=== PATIENT | male | born 1945 | race Caucasian/White ===

== ENCOUNTER 2018-04-06 15:36 | Emergency (ER) | payer OTHER ==
[~2018-04-06] VITALS: Ht 180.3 cm; Wt 86.9 kg
[~2018-04-06 15:36] MED LIST: ALLO300T PO; BENA1TAB11 PO; CLON0.1T PO; GLIP5TAB10 PO; INSU100C SQ-INSULIN; INSU100V8 SQ
[2018-04-06 16:45] VITALS: BP 91/55
== END 2018-04-06 17:16 | disposition home or self-care (01) ==
LOC: ED 16:34
DX: J18.1 Lobar pneumonia, unspecified organism (principal); I10 Essential (primary) hypertension; E11.9 Type 2 diabetes mellitus without complications
CPT/HCPCS: 71046; 99284

== ENCOUNTER → 2018-11-12 | Outpatient (CLI) | payer OTHER ==
[~2018-11-12] MED LIST changes: +ACET-1770 PO; +ACET1TAB64 PO; +BENA40TA3 PO; +CEFD300C37 PO; +CHOL200024 PO; +CINN1CAP PO; -CLON0.1T PO; +CLON0.1T22 PO; +CLOP75TA52 PO; +DIAZ10TA4 PO; +DICY10CA3 PO; +GABA300C10 PO; +GLIP10TA13 PO; +HYDR-3240 PO; +LEVO5TAB29 PO; +MULT-658 PO; +OMEP20TA62 PO; +PANT40TA5 PO
== END | disposition home or self-care (01) ==
LOC: STAR 13:07
PROVIDERS: ATTEND Surgery
DX: Z01.818 Encounter for other preprocedural examination (principal); K80.20 Calculus of gallbladder without cholecystitis without obstruction; I45.10 Unspecified right bundle-branch block
CPT/HCPCS: 93005

== ENCOUNTER 2018-11-18 06:52 | Day surgery (SDC) | payer OTHER ==
[~2018-11-18] VITALS: Ht 180.3 cm; Wt 85.0 kg
[2018-11-18] MEDS ORDERED: LACTATED RINGERS 1,000 ML IV SCH (07:23)
[2018-11-18 07:24] VITALS: BP 147/84
[2018-11-18] MEDS ORDERED: DIAZEPAM 5 MG TABLET PO ONE (08:00)
[2018-11-18] MEDS ORDERED: ACETAMINOPHEN 500 MG TABLET PO ONE (08:00)
[2018-11-18] MEDS ORDERED: GABAPENTIN 300 MG CAPSULE PO ONE (08:00)
[2018-11-18] MEDS ORDERED: FENTANYL PF 250 MCG/5ML ONE (08:11)
[2018-11-18] MEDS ORDERED: LIDOCAINE 2%, 6 ML JEL.PF.APP MM ONE (08:37)
[2018-11-18] MEDS ORDERED: BUPIVACAINE/EPI 0.5% 1:200K ONE (08:41)
[2018-11-18] MEDS ORDERED: EPHEDRINE 50 MG/ML, 1ML ONE (08:57)
[2018-11-18] MEDS ORDERED: PHENYLEPHRINE 10 MG/ML ONE (08:57)
[2018-11-18] MEDS ORDERED: PROPOFOL 10 MG/ML, 20ML ONE (09:57)
[2018-11-18] MEDS ORDERED: SUCCINYLCHOLINE 20 MG/ML, 10ML ONE (09:57)
[2018-11-18] MEDS ORDERED: NEOSTIGMINE 1 MG/ML, 10ML ONE (09:57)
[2018-11-18] MEDS ORDERED: ROCURONIUM 10MG/ML,5ML ONE (09:57)
[2018-11-18] MEDS ORDERED: GLYCOPYRROLATE 0.2MG/1ML, 5ML ONE (09:57)
[2018-11-18] MEDS ORDERED: DEXAMETHASONE 4 MG/ML, 1ML ONE (09:57)
[2018-11-18] MEDS ORDERED: CEFAZOLIN 1,000 MG ONE (09:57)
[2018-11-18] MEDS ORDERED: ONDANSETRON 2MG/ML, 2ML ONE (09:57)
[2018-11-18] MEDS ORDERED: ACETAMINOPHEN 325 MG TABLET PO PRN (10:00)
[2018-11-18] MEDS ORDERED: MEPERIDINE/PF 25MG/0.5ML IVPush PRN (10:00)
[2018-11-18] MEDS ORDERED: HYDROmorphone 2 MG/ML, 1ML IVPush PRN (10:00)
[2018-11-18] MEDS ORDERED: EPHEDRINE 50 MG/ML, 1ML IVPush PRN (10:00)
[2018-11-18] MEDS ORDERED: FENTANYL PF 100 MCG/2ML IV PRN (10:00)
[2018-11-18] MEDS ORDERED: ONDANSETRON 2MG/ML, 2ML IV PRN (10:00)
[2018-11-18] MEDS ORDERED: PROMETHAZINE 25 MG/ML, 1ML IV PRN (10:00)
[2018-11-18] MEDS ORDERED: OXYcodone 5 MG/5 ML ORAL.SOL UDC PO PRN (10:00)
[2018-11-18] MEDS ORDERED: MIDAZOLAM 1 MG/ML, 2ML IV PRN (10:00)
[2018-11-18] MEDS ORDERED: ALBUTEROL/IPRATROPIUM 2.5MG/0.5MG, 3 ML NPPB PRN (10:00)
[2018-11-18] MEDS ORDERED: hydrALAzine 20 MG/ML, 1ML IV PRN (10:00)
[2018-11-18] MEDS ORDERED: OXYcodone 5 MG/5 ML ORAL.SOL UDC ONE (10:12)
[2018-11-18] MEDS ORDERED: DIAZEPAM 5 MG TABLET ONE (10:12)
[2018-11-18] MEDS ORDERED: FENTANYL PF 100 MCG/2ML ONE (10:12)
== END 2018-11-18 12:30 | disposition home or self-care (01) ==
LOC: OUT 06:52
PROVIDERS: ATTEND Surgery
DX: K80.10 Calculus of gallbladder with chronic cholecystitis without obstruction (principal); K85.10 Biliary acute pancreatitis without necrosis or infection; N40.0 Benign prostatic hyperplasia without lower urinary tract symptoms; E11.9 Type 2 diabetes mellitus without complications; K21.9 Gastro-esophageal reflux disease without esophagitis; I10 Essential (primary) hypertension; Z87.891 Personal history of nicotine dependence; Z72.89 Other problems related to lifestyle; Z79.4 Long term (current) use of insulin; Z86.73 Personal history of transient ischemic attack (TIA), and cerebral infarction without residual deficits
CPT/HCPCS: 47562; 82962; 88304; J0330; J0690; J1100; J2370; J2405; J2704; J2710; J3010; J7120